=== PATIENT | male | born 1985 | race Two or more races ===

== ENCOUNTER 2017-05-20 20:28 | Emergency (ER) | payer SELFPAY ==
[~2017-05-20] VITALS: Ht 172.7 cm; Wt 81.5 kg
[2017-05-20 20:31] VITALS: BP 129/87
== END 2017-05-20 22:13 | disposition home or self-care (01) ==
LOC: ED 22:07
DX: S60.221A Contusion of right hand, initial encounter (principal); X58.XXXA Exposure to other specified factors, initial encounter; Y93.89 Activity, other specified; Y92.89 Other specified places as the place of occurrence of the external cause; Y99.8 Other external cause status
CPT/HCPCS: 29125; 99284

== ENCOUNTER 2017-12-14 00:01 | Emergency (ER) | payer OTHER ==
[~2017-12-14] VITALS: Ht 165.1 cm; Wt 84.5 kg
[2017-12-14 00:05] VITALS: BP 134/76
[2017-12-14] MEDS ORDERED: CEFTRIAXONE 1,000 MG IM ONE (00:30)
[2017-12-14] MEDS ORDERED: CEFTRIAXONE 1,000 MG ONE (00:35)
== END 2017-12-14 01:23 | disposition home or self-care (01) ==
LOC: ED 01:20
DX: L03.114 Cellulitis of left upper limb (principal); F17.200 Nicotine dependence, unspecified, uncomplicated
CPT/HCPCS: 96372; 99283; J0696

== ENCOUNTER 2017-12-15 18:41 | Emergency (ER) | payer OTHER ==
[2017-12-15 18:59] VITALS: BP 146/83
[2017-12-15] MEDS ORDERED: LIDOCAINE-MPF 1%, 5ML INFIL ONE (19:30)
[2017-12-15] MEDS ORDERED: PLEASE ENTER HEIGHT AND WEIGHT MC SCH (19:30)
[2017-12-15] MEDS ORDERED: LIDOCAINE-MPF 1%, 5ML ONE ×2 (20:01→20:37)
[2017-12-15] MEDS ORDERED: CEFAZOLIN 1,000 MG IM ONE (20:30)
[2017-12-15] MEDS ORDERED: LIDOCAINE-MPF 1%, 2ML ONE (20:33)
[2017-12-15] MEDS ORDERED: CEFAZOLIN 1,000 MG ONE (20:33)
== END 2017-12-15 21:14 | disposition home or self-care (01) ==
LOC: ED 20:37
DX: L03.114 Cellulitis of left upper limb (principal); L02.511 Cutaneous abscess of right hand
CPT/HCPCS: 10060; 73130; 96372; 99284; J0690

== ENCOUNTER 2017-12-19 19:45 | Emergency (ER) | payer OTHER ==
[~2017-12-19] VITALS: Ht 167.6 cm; Wt 84.2 kg
[2017-12-19 19:53] VITALS: BP 135/89
[2017-12-19] MEDS ORDERED: HYDROcodone/APAP 5/325 TABLET ONE (20:16)
[2017-12-19] MEDS ORDERED: HYDROcodone/APAP 5/325 TABLET PO ONE (20:30)
== END 2017-12-19 21:00 | disposition home or self-care (01) ==
LOC: ED 20:51
DX: L02.512 Cutaneous abscess of left hand (principal)
CPT/HCPCS: 99282